=== PATIENT | male | born 1935 | race African-American/Black ===

== ENCOUNTER 2019-06-03 09:24 | Emergency (ER) | payer MEDICARE ==
[2019-06-03 09:53] LABS: INR-International Normal Ratio 1.1; PTT 30.7 SEC (22.9-36.1); Prothrombin Time 14.2 SEC (12.0-14.7)
[2019-06-03 09:58] LABS: #Basophils 0.1 thou/uL (0.0-0.2); #Monocytes 0.4 thou/uL (0.11-0.59); #Neutrophils 1.7 thou/uL (1.40-6.50); %Basophils 2.1 % (0.0-1.0); %Eosinophils 1.4 % (0.0-10.0); %Lymphocytes 31.6 % (21.0-51.0); %Monocytes 12.1 % (0.0-10.0); %Neutrophils 52.9 % (42.0-75.0); Hemoglobin 11.4 g/dL (14.0-18.0); Mean Corpuscular HGB CONC 31.3 g/dL (32.0-36.0); Mean Corpuscular Hemoglobin 28.5 pg (27.0-31.0); Platelet Count 151 thou/uL (130-400); RBC Distribution Width 13.6 % (11.5-14.5); Red Blood Cell (RBC) Count 3.99 mill/uL (4.70-6.10); White Blood Cell (WBC) Count 3.2 thou/uL (4.8-10.8)
[2019-06-03 10:02] LABS: ALT (SGPT) Less than 7 U/L (8-55); AST (SGOT) 20 U/L (5-34); Albumin 3.6 g/dL (3.4-4.8); Alkaline Phosphatase 55 U/L (40-150); Anion Gap 12 mmol/L (10-20); BUN (Urea Nitrogen) 13 mg/dL (8.4-25.7); Bilirubin, Total 0.8 mg/dL (0.2-1.2); Calc. Creatinine Clearance 0 mL/min (70-130); Calcium 9.5 mg/dL (7.8-10.44); Carbon Dioxide 28 mmol/L (23-31); Chloride 107 mmol/L (98-107); Estimated GFR-MDRD Greater than 90; Globulin 3.1 g/dL (2.4-3.5); Glucose 93 mg/dL (83-110); Lipase 17 U/L (8-78); Potassium 3.5 mmol/L (3.5-5.1); Protein, Total 6.7 g/dL (5.8-8.1); Sodium 143 mmol/L (136-145)
--- NOTE | 2019-06-03 10:05 | RAD ---
XR Chest 1 View Portable HISTORY: Chest pain COMPARISON: 06/28/2017 FINDINGS: The heart size is normal. The lungs are well expanded without focal areas of consolidation, pneumothorax or pleural effusions. IMPRESSION: No radiographic evidence of acute cardiopulmonary process.
== END 2019-06-03 10:32 | disposition home or self-care (01) ==
LOC: BURERS 09:24
DX: M25.512 Pain in left shoulder (principal); N40.0 Benign prostatic hyperplasia without lower urinary tract symptoms; E78.2 Mixed hyperlipidemia; I10 Essential (primary) hypertension; Z86.73 Personal history of transient ischemic attack (TIA), and cerebral infarction without residual deficits; I25.10 Atherosclerotic heart disease of native coronary artery without angina pectoris
CPT/HCPCS: 71045; 80053; 83690; 84484; 85025; 85610; 85730

== ENCOUNTER 2019-06-16 13:18 | Emergency (ER) | payer MEDICARE ==
[2019-06-16 14:02] LABS: ALT (SGPT) 10 U/L (8-55); AST (SGOT) 23 U/L (5-34); Alkaline Phosphatase 56 U/L (40-150); Anion Gap 13 mmol/L (10-20); BUN (Urea Nitrogen) 25 mg/dL (8.4-25.7); Bilirubin, Total 0.5 mg/dL (0.2-1.2); CK (CPK) 98 U/L (30-200); Calc. Creatinine Clearance 0 mL/min (70-130); Calcium 9.9 mg/dL (7.8-10.44); Carbon Dioxide 27 mmol/L (23-31); Chloride 105 mmol/L (98-107); Estimated GFR-MDRD 70; Globulin 3.6 g/dL (2.4-3.5); Glucose 97 mg/dL (83-110); Potassium 3.5 mmol/L (3.5-5.1); Protein, Total 7.6 g/dL (5.8-8.1); Sodium 141 mmol/L (136-145)
[2019-06-16 14:11] LABS: #Basophils 0.1 thou/uL (0.0-0.2); #Eosinphils 0.1 thou/uL (0.0-0.7); #Lymphocytes 1.7 thou/uL (1.20-3.40); #Monocytes 0.5 thou/uL (0.11-0.59); #Neutrophils 2.1 thou/uL (1.40-6.50); %Basophils 1.9 % (0.0-1.0); %Eosinophils 2.1 % (0.0-10.0); %Lymphocytes 38.8 % (21.0-51.0); %Monocytes 11.1 % (0.0-10.0); %Neutrophils 46.2 % (42.0-75.0); Band 1 % (5-11); Eosinophils 1 % (0-10); Hemoglobin 11.4 g/dL (14.0-18.0); Lymphocytes 37 % (21-51); MDiff Complete? YES; Mean Corpuscular HGB CONC 30.3 g/dL (32.0-36.0); Mean Corpuscular Hemoglobin 27.8 pg (27.0-31.0); Mean Platelet Volume 10.8 fL (7.4-10.4); Monocytes 13 % (0-10); Neutrophil 48 % (42-75); Platelet Count 151 thou/uL (130-400); RBC Distribution Width 13.7 % (11.5-14.5); Red Blood Cell (RBC) Count 4.09 mill/uL (4.70-6.10); White Blood Cell (WBC) Count 4.4 thou/uL (4.8-10.8)
--- NOTE | 2019-06-16 17:29 | RAD ---
PORTABLE CHEST: 06/16/2019 COMPARISON: Chest films dating back to 06/28/2017. FINDINGS: The heart is normal in size. The mediastinum shows no widening or shift. The lungs are fully inflat ed and clear. There are some vague calcific opacities over the left upper chest that, in retrospect, are present on the prior study. They are probably pleural calcifications. IMPRESSION: No acute finding. POS: HOME
== END 2019-06-16 14:30 | disposition home or self-care (01) ==
LOC: BURERS 13:18
DX: R07.89 Other chest pain (principal); N40.0 Benign prostatic hyperplasia without lower urinary tract symptoms; E78.2 Mixed hyperlipidemia; I10 Essential (primary) hypertension; Z86.73 Personal history of transient ischemic attack (TIA), and cerebral infarction without residual deficits; I25.10 Atherosclerotic heart disease of native coronary artery without angina pectoris; I48.91 Unspecified atrial fibrillation; Z79.899 Other long term (current) drug therapy; Z79.82 Long term (current) use of aspirin
CPT/HCPCS: 36415; 71045; 80053; 82550; 84443; 84484; 85025; 93005

== ENCOUNTER 2020-01-11 11:29 | Emergency (ER) | payer MEDICARE ==
[2020-01-11 12:20] LABS: Platelet Count 94 thou/uL (130-400)
[2020-01-11 12:27] LABS: ALT (SGPT) 16 U/L (8-55); AST (SGOT) 31 U/L (5-34); Albumin 3.6 g/dL (3.4-4.8); Alkaline Phosphatase 56 U/L (40-110); Anion Gap 14 mmol/L (10-20); BUN (Urea Nitrogen) 11 mg/dL (8.4-25.7); Bilirubin, Total 1.4 mg/dL (0.2-1.2); Calc. Creatinine Clearance 0 mL/min (70-130); Calcium 8.4 mg/dL (7.8-10.44); Carbon Dioxide 24 mmol/L (23-31); Chloride 103 mmol/L (98-107); Estimated GFR-MDRD Greater than 90; Globulin 3.1 g/dL (2.4-3.5); Glucose 100 mg/dL (83-110); Potassium 3.1 mmol/L (3.5-5.1); Protein, Total 6.7 g/dL (5.8-8.1); Sodium 138 mmol/L (136-145)
[2020-01-11 12:28] LABS: #Basophils 0.1 thou/uL (0.0-0.2); #Lymphocytes 0.5 thou/uL (1.20-3.40); #Monocytes 0.6 thou/uL (0.11-0.59); #Neutrophils 7.1 thou/uL (1.40-6.50); %Basophils 1.1 % (0.0-1.0); %Lymphocytes 6.1 % (21.0-51.0); %Monocytes 7.7 % (0.0-10.0); Band 3 % (5-11); Elliptocytes SLIGHT = 2-5 cells (100X) (0-1/hpf); Hemoglobin 11.7 g/dL (14.0-18.0); Lymphocytes 8 % (21-51); MDiff Complete? YES; Mean Corpuscular HGB CONC 31.2 g/dL (32.0-36.0); Mean Corpuscular Hemoglobin 28.8 pg (27.0-31.0); Mean Corpuscular Volume 92.3 fL (78.0-98.0); Mean Platelet Volume 12.2 fL (7.4-10.4); Monocytes 12 % (0-10); Neutrophil 77 % (42-75); RBC Distribution Width 15.9 % (11.5-14.5); Red Blood Cell (RBC) Count 4.07 mill/uL (4.70-6.10); White Blood Cell (WBC) Count 8.3 thou/uL (4.8-10.8)
[2020-01-11 12:47] LABS: CKMB 3.2 ng/mL (0-6.6)
[2020-01-11 12:55] LABS: Bilirubin Negative (Negative); Blood, Urine Large (Negative); Clarity Cloudy (Clear); Glucose, Urine (Dipstick) Negative (Negative); Leukocyte Moderate (Negative); Nitrite Positive (Negative); Protein, Urine (Dipstick) 30 mg/dL (Neg-Trace)
[2020-01-11 13:00] LABS: Bacteria/HPF 4+ HPF (None Seen); Broad Cast None Seen LPF (None Seen); Calcium Oxalate Crystals None Seen HPF (None Seen); Cellular Cast None Seen LPF (None Seen); Epithelial Cast None Seen LPF (None Seen); Fatty Cast None Seen LPF (None Seen); Mucous/LPF None Seen LPF (<2+); Other Casts None Seen LPF (None Seen); Oval Fat Bodies/HPF None Seen HPF (None Seen); Red Blood Cell Cast None Seen LPF (None Seen); Renal Epithelial None Seen HPF (None Seen); Sperm/HPF None Seen HPF (None Seen); Squamous Epithelial 0-3 HPF (0-3); Transitional Epithelial None Seen HPF (None Seen); Trichomonas/HPF None Seen HPF (None Seen); Triple Phosphate Crystal None Seen HPF (None Seen); Unclassified Crystals None Seen HPF (None Seen); WBC/HPF 21-50 HPF (0-3); Waxy Cast None Seen LPF (None Seen); White Blood Cell Cast None Seen LPF (None Seen); Yeast-Budding Rare HPF (None Seen); Yeast-Hyphae None Seen HPF (None Seen)
[2020-01-11] MEDS ORDERED: Sodium Chloride 0.9% 100 ML ONE (13:19)
[2020-01-11] MEDS ORDERED: cefTRIAXone\\ROCEPHIN 2 GM VIAL ONE (13:19)
--- NOTE | 2020-01-11 13:43 | RAD ---
PORTABLE CHEST: Date: 01/11/2020 An AP portable film at 1205 hours is compared with an 06/16/2019 study. There is some mild interstitial prominence today that was not present before. It is present in a diff use fashion. No lobar infiltrate was seen. No large effusions are present. The heart size is normal. IMPRESSION: Mild interstitial prominence. Further clinical information would be needed to determine possible caus es. POS: HOME
== END 2020-01-11 14:04 | disposition home or self-care (01) ==
LOC: BURERS 11:29
DX: N39.0 Urinary tract infection, site not specified (principal); E87.6 Hypokalemia; E78.5 Hyperlipidemia, unspecified; E78.00 Pure hypercholesterolemia, unspecified; I10 Essential (primary) hypertension; I25.10 Atherosclerotic heart disease of native coronary artery without angina pectoris; I48.91 Unspecified atrial fibrillation; Z86.73 Personal history of transient ischemic attack (TIA), and cerebral infarction without residual deficits
CPT/HCPCS: 71045; 80053; 81003; 81015; 82553; 83605; 83880; 84484; 85025; 87040; 87077; 87086; 87186; 93005; 96365; J0696; J3490

== ENCOUNTER 2020-04-17 11:53 | Emergency (ER) | payer MEDICARE | END 2020-04-17 12:10 | disposition home or self-care (01) | LOC: BURERS 11:53 | DX: Z00.00 Encounter for general adult medical examination without abnormal findings (principal); N40.0 Benign prostatic hyperplasia without lower urinary tract symptoms; E78.2 Mixed hyperlipidemia; I10 Essential (primary) hypertension; I25.10 Atherosclerotic heart disease of native coronary artery without angina pectoris; I48.91 Unspecified atrial fibrillation; Z86.73 Personal history of transient ischemic attack (TIA), and cerebral infarction without residual deficits | CPT/HCPCS: 99281 ==

== ENCOUNTER 2020-08-13 09:51 | Emergency (ER) | payer MEDICARE ==
[2020-08-13 10:43] LABS: Bilirubin Negative (Negative); Blood, Urine Negative (Negative); Clarity Clear (Clear); Glucose, Urine (Dipstick) Negative (Negative); Ketone, Urine Negative (Negative); Leukocyte Negative (Negative); Nitrite Negative (Negative); Protein, Urine (Dipstick) Negative (Neg-Trace); Urobilinogen 0.2 mg/dL (Less than 2); pH, Urine 6.5 (5.0-9.0)
[2020-08-13 10:51] LABS: Hemoglobin 14.1 g/dL (14.0-18.0); Mean Corpuscular HGB CONC 31.5 g/dL (32.0-36.0); Mean Corpuscular Hemoglobin 30.4 pg (27.0-31.0); Mean Corpuscular Volume 96.7 fL (78.0-98.0); Mean Platelet Volume 15.3 fL (7.4-10.4); Platelet Count 93 thou/uL (130-400); RBC Distribution Width 12.6 % (11.5-14.5); Red Blood Cell (RBC) Count 4.63 mill/uL (4.70-6.10); White Blood Cell (WBC) Count 3.5 thou/uL (4.8-10.8)
[2020-08-13 10:59] LABS: ALT (SGPT) 16 U/L (8-55); AST (SGOT) 22 U/L (5-34); Albumin 3.7 g/dL (3.4-4.8); Alkaline Phosphatase 60 U/L (40-110); Anion Gap 12 mmol/L (10-20); BUN (Urea Nitrogen) 12 mg/dL (8.4-25.7); Bilirubin, Total 1.1 mg/dL (0.2-1.2); Calc. Creatinine Clearance 0 mL/min (70-130); Calcium 8.8 mg/dL (7.8-10.44); Carbon Dioxide 29 mmol/L (23-31); Chloride 103 mmol/L (98-107); Estimated GFR-MDRD 72; Globulin 3.5 g/dL (2.4-3.5); Glucose 86 mg/dL (83-110); Potassium 3.6 mmol/L (3.5-5.1); Protein, Total 7.2 g/dL (5.8-8.1); Sodium 140 mmol/L (136-145)
[2020-08-13 11:04] LABS: #Eosinphils 0.1 thou/uL (0.0-0.7); #Lymphocytes 1.1 thou/uL (1.20-3.40); #Monocytes 0.3 thou/uL (0.11-0.59); %Eosinophils 1.9 % (0.0-10.0); %Lymphocytes 31.6 % (21.0-51.0); %Neutrophils 56.4 % (42.0-75.0); Giant Platelets SLIGHT; Large Platelets SLIGHT; MDiff Complete? YES; Platelet Clumps SLIGHT; Platelet Morphology Comment Appears Adequate
--- NOTE | 2020-08-13 12:05 | RAD ---
CHEST 2 VIEWS: Date: 08/13/2020 Comparison is made with the 07/11/2020 study. The heart is normal in size. There are no major lobar infiltrates, congestive changes, or effusions. 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 Ther e are a few vague patchy areas over some sections of the left hemithorax that were present before duane t are probably more pleural calcifications. CT would be definitive if needed. The mediastinum is unre markable. IMPRESSION: No definite acute finding. POS: HOME
== END 2020-08-13 11:30 | disposition home or self-care (01) ==
LOC: BURERS 09:51
DX: M54.6 Pain in thoracic spine (principal); N40.0 Benign prostatic hyperplasia without lower urinary tract symptoms; E78.2 Mixed hyperlipidemia; I10 Essential (primary) hypertension; I25.10 Atherosclerotic heart disease of native coronary artery without angina pectoris; I48.91 Unspecified atrial fibrillation; Z86.73 Personal history of transient ischemic attack (TIA), and cerebral infarction without residual deficits; Z79.899 Other long term (current) drug therapy; Z79.82 Long term (current) use of aspirin
CPT/HCPCS: 71046; 80053; 81003; 84484; 85025

== ENCOUNTER 2020-10-17 17:19 | Emergency (ER) | payer MEDICARE ==
[2020-10-17] MEDS ORDERED: Amiodarone In Dextrose 200 ML ONE (17:30)
[2020-10-17 18:05] LABS: Band 2 % (5-11); Eosinophils 1 % (0-10); Hemoglobin 13.2 g/dL (14.0-18.0); Lymphocytes 29 % (21-51); MDiff Complete? YES; Mean Corpuscular HGB CONC 32.1 g/dL (32.0-36.0); Mean Corpuscular Hemoglobin 30.1 pg (27.0-31.0); Mean Corpuscular Volume 93.9 fL (78.0-98.0); Mean Platelet Volume 13.1 fL (7.4-10.4); Metamyelocyte 1 % (0-0); Monocytes 6 % (0-10); Neutrophil 59 % (42-75); Platelet Count 99 thou/uL (130-400); Platelet Morphology Comment Appears Decreased; RBC Distribution Width 12.1 % (11.5-14.5); Reactive Lymphocytes 2 % (0-10); Red Blood Cell (RBC) Count 4.38 mill/uL (4.70-6.10); White Blood Cell (WBC) Count 4.7 thou/uL (4.8-10.8)
[2020-10-17] MEDS ORDERED: Aspirin Chewable 81 MG TAB ONE (18:07)
[2020-10-17 18:12] LABS: ALT (SGPT) 19 U/L (8-55); AST (SGOT) 38 U/L (5-34); Albumin 3.4 g/dL (3.4-4.8); Alkaline Phosphatase 50 U/L (40-110); Anion Gap 16 mmol/L (10-20); BUN (Urea Nitrogen) 16 mg/dL (8.4-25.7); Bilirubin, Total 1.1 mg/dL (0.2-1.2); Calc. Creatinine Clearance 0 mL/min (70-130); Calcium 8.8 mg/dL (7.8-10.44); Carbon Dioxide 23 mmol/L (23-31); Chloride 104 mmol/L (98-107); Globulin 4.2 g/dL (2.4-3.5); Glucose 141 mg/dL (83-110); Magnesium 1.9 mg/dL (1.6-2.6); Potassium 4.7 mmol/L (3.5-5.1); Protein, Total 7.6 g/dL (5.8-8.1); Sodium 138 mmol/L (136-145)
[2020-10-17 18:23] LABS: Prothrombin Time 13.1 sec (12.0-14.7)
[2020-10-17] MEDS ORDERED: Magnesium 2 GM/50 ML BAG (IN WATER) ONE (18:58)
[2020-10-17] MEDS ORDERED: Morphine 2 MG/ML VIAL ONE (19:01)
--- NOTE | 2020-10-17 22:03 | RAD ---
PORTABLE CHEST: Date: 10-17-2020 An AP portable film at 1757 is compared with a 08-13-2020 study. FINDINGS: The heart is normal in size. There is no congestion of vessels. There may be a very small amount of p leural fluid. There is some patchy haziness in the lung bases near each hemidiaphragm. I cannot exclu de some infiltrates here, and in the proper clinical context infection, including Covid, should be a consideration. There are some vague patchy areas over the left lateral hemithorax which I have a susp icion are probably calcified pleural plaques. There is a hint of diaphragmatic calcification on the l eft side suggesting that there may have been prior asbestos exposure. IMPRESSION: 1. I cannot exclude developing basilar infiltrates. 2. Possible calcified pleural plaques. CT would be more definitive. I would consider giving at [facility] another follow up chest x-ray on this patient after initial treatment. POS: HOME
== END 2020-10-17 19:23 | disposition short-term general hospital (02) ==
LOC: BURERS 17:19
DX: I49.01 Ventricular fibrillation (principal); E78.2 Mixed hyperlipidemia; I10 Essential (primary) hypertension; Z86.73 Personal history of transient ischemic attack (TIA), and cerebral infarction without residual deficits; I25.10 Atherosclerotic heart disease of native coronary artery without angina pectoris; Z79.82 Long term (current) use of aspirin; Z79.899 Other long term (current) drug therapy
CPT/HCPCS: 36415; 71045; 80053; 83735; 83880; 84484; 85025; 85610; 93005; 96365; 96375; 96376; J0282; J2270; J3475

== ENCOUNTER 2021-02-14 14:58 | Emergency (ER) | payer MEDICARE ==
[2021-02-14 15:48] LABS: #Basophils 0.2 thou/uL (0.0-0.2); #Lymphocytes 0.6 thou/uL (1.20-3.40); #Monocytes 0.6 thou/uL (0.11-0.59); #Neutrophils 6.6 thou/uL (1.40-6.50); %Basophils 2.1 % (0.0-1.0); %Eosinophils 0.1 % (0.0-10.0); %Lymphocytes 7.3 % (21.0-51.0); %Neutrophils 82.6 % (42.0-75.0); Mean Corpuscular HGB CONC 32.5 g/dL (32.0-36.0); Mean Corpuscular Volume 98.3 fL (78.0-98.0); Mean Platelet Volume 11.9 fL (7.4-10.4); Platelet Count 134 thou/uL (130-400); RBC Distribution Width 12.9 % (11.5-14.5); Red Blood Cell (RBC) Count 4.07 mill/uL (4.70-6.10)
[2021-02-14 15:49] LABS: ALT (SGPT) 11 U/L (8-55); AST (SGOT) 19 U/L (5-34); Albumin 3.7 g/dL (3.4-4.8); Alkaline Phosphatase 58 U/L (40-110); Anion Gap 14 mmol/L (10-20); BUN (Urea Nitrogen) 20 mg/dL (8.4-25.7); Bilirubin, Total 0.9 mg/dL (0.2-1.2); Calc. Creatinine Clearance 0 mL/min (70-130); Carbon Dioxide 28 mmol/L (23-31); Chloride 101 mmol/L (98-107); Globulin 3.5 g/dL (2.4-3.5); Glucose 95 mg/dL (83-110); Potassium 4.5 mmol/L (3.5-5.1); Protein, Total 7.2 g/dL (5.8-8.1); Sodium 138 mmol/L (136-145)
[2021-02-14 16:26] LABS: Bilirubin Negative (Negative); Blood, Urine Trace (Negative); Clarity Cloudy (Clear); Glucose, Urine (Dipstick) Negative (Negative); Ketone, Urine Negative (Negative); Leukocyte Large (Negative); Nitrite Positive (Negative); Protein, Urine (Dipstick) 30 mg/dL (Neg-Trace); Urobilinogen 0.2 mg/dL (Less than 2); pH, Urine 8.5 (5.0-9.0)
[2021-02-14 16:30] LABS: Bacteria/HPF 3+ HPF (None Seen); RBC/HPF 0-3 HPF (0-3); Squamous Epithelial None Seen HPF (0-3); WBC/HPF Greater than 50 HPF (0-3)
[2021-02-14] MEDS ORDERED: cefTRIAXone\\ROCEPHIN 1 GM VIAL ONE (17:10)
[2021-02-14] MEDS ORDERED: Sodium Chloride 0.9% 100 ML ONE (17:10)
== END 2021-02-14 17:26 | disposition home or self-care (01) ==
LOC: BURERS 14:58
DX: N40.1 Benign prostatic hyperplasia with lower urinary tract symptoms (principal); N13.8 Other obstructive and reflux uropathy; N39.0 Urinary tract infection, site not specified; E78.2 Mixed hyperlipidemia; I10 Essential (primary) hypertension; I25.10 Atherosclerotic heart disease of native coronary artery without angina pectoris; I48.91 Unspecified atrial fibrillation; Z86.73 Personal history of transient ischemic attack (TIA), and cerebral infarction without residual deficits; Z79.899 Other long term (current) drug therapy
CPT/HCPCS: 36415; 51798; 71046; 80053; 81003; 81015; 84484; 85025; 87077; 87086; 87186; 93005; 94760; 96374; J0696; J3490

== ENCOUNTER 2021-03-17 13:10 | Emergency (ER) | payer MEDICARE | END 2021-03-17 13:44 | disposition home or self-care (01) | LOC: BURERS 13:10 | DX: L20.9 Atopic dermatitis, unspecified (principal); N40.0 Benign prostatic hyperplasia without lower urinary tract symptoms; E78.2 Mixed hyperlipidemia; I10 Essential (primary) hypertension; I25.10 Atherosclerotic heart disease of native coronary artery without angina pectoris; I48.91 Unspecified atrial fibrillation; Z86.73 Personal history of transient ischemic attack (TIA), and cerebral infarction without residual deficits; Z79.899 Other long term (current) drug therapy; Z79.82 Long term (current) use of aspirin | CPT/HCPCS: 99282 ==

== ENCOUNTER 2021-08-10 22:23 | Emergency (ER) | payer MEDICARE ==
[2021-08-10 23:10] LABS: ALT (SGPT) 40 U/L (8-55); AST (SGOT) 47 U/L (5-34); Albumin 3.5 g/dL (3.4-4.8); Alkaline Phosphatase 65 U/L (40-110); Anion Gap 14 mmol/L (10-20); BUN (Urea Nitrogen) 23 mg/dL (8.4-25.7); Calc. Creatinine Clearance 0 mL/min (70-130); Carbon Dioxide 24 mmol/L (23-31); Chloride 103 mmol/L (98-107); Glucose 93 mg/dL (83-110); Potassium 4.1 mmol/L (3.5-5.1); Protein, Total 6.5 g/dL (5.8-8.1); Sodium 137 mmol/L (136-145)
[2021-08-10 23:23] LABS: #Basophils 0.1 thou/uL (0.0-0.2); #Eosinphils 0.1 thou/uL (0.0-0.7); #Lymphocytes 1.3 thou/uL (1.20-3.40); #Monocytes 0.6 thou/uL (0.11-0.59); #Neutrophils 3.3 thou/uL (1.40-6.50); %Basophils 2.6 % (0.0-1.0); %Eosinophils 1.1 % (0.0-10.0); %Lymphocytes 24.2 % (21.0-51.0); %Monocytes 11.3 % (0.0-10.0); %Neutrophils 60.8 % (42.0-75.0); Hemoglobin 12.4 g/dL (14.0-18.0); Mean Corpuscular HGB CONC 32.6 g/dL (32.0-36.0); Mean Corpuscular Hemoglobin 30.6 pg (27.0-31.0); Mean Corpuscular Volume 93.8 fL (78.0-98.0); Mean Platelet Volume 14.2 fL (7.4-10.4); Platelet Count 127 thou/uL (130-400); RBC Distribution Width 13.8 % (11.5-14.5); Red Blood Cell (RBC) Count 4.04 mill/uL (4.70-6.10); White Blood Cell (WBC) Count 5.5 thou/uL (4.8-10.8)
[2021-08-10 23:24] LABS: Large Platelets SLIGHT; MDiff Complete? YES; Platelet Morphology Comment Appears Adequate; RBC Morphology Normal
[2021-08-11] LABS: Bilirubin Negative (Negative); Blood, Urine Trace (Negative); Clarity Slightly Cloudy (Clear); Glucose, Urine (Dipstick) Negative (Negative); Ketone, Urine Negative (Negative); Leukocyte Large (Negative); Nitrite Positive (Negative); Protein, Urine (Dipstick) Negative (Neg-Trace); Specific Gravity, Urine 1.015 (1.005-1.030)
[2021-08-11 00:01] LABS: RBC/HPF 0-3 HPF (0-3); WBC/HPF 21-50 HPF (0-3)
[2021-08-11 00:02] LABS: Bacteria/HPF 2+ HPF (None Seen); Squamous Epithelial 0-3 HPF (0-3)
[2021-08-11] MEDS ORDERED: cefTRIAXone\\ROCEPHIN 1 GM VIAL ONE (00:21)
[2021-08-11] MEDS ORDERED: Sodium Chloride 0.9% 100 ML ONE (00:21)
[2021-08-11] MEDS ORDERED: Doxycycline 100 MG CAP ONE (00:38)
[2021-08-11 01:01] LABS: SARS-CoV-2 NAA Rapid Test DETECTED (NotDetected)
[2021-08-11] MEDS ORDERED: Enoxaparin Sodium 100 MG/ML SYRINGE ONE (01:05)
[2021-08-11] MEDS ORDERED: Dexamethasone 4 MG TAB ONE (01:05)
== END 2021-08-11 02:40 | disposition short-term general hospital (02) ==
LOC: BURERS 22:23
DX: U07.1 COVID-19 (principal); J12.82 Pneumonia due to coronavirus disease 2019; N39.0 Urinary tract infection, site not specified; E78.5 Hyperlipidemia, unspecified; I10 Essential (primary) hypertension
CPT/HCPCS: 70450; 71045; 80053; 83605; 83880; 84484; 85025; 87040; 87077; 87086; 87186; 93005; U0002; 36415; 81003; 81015; 96365; 96366; 96372; J0696; J1650; J3490; J8540

== ENCOUNTER 2021-10-12 16:30 | Observation (INO) | payer MEDICARE ==
[2021-10-12 17:31] LABS: #Basophils 0.1 thou/uL (0.0-0.2); #Neutrophils 8.6 thou/uL (1.40-6.50); %Basophils 1.1 % (0.0-1.0); %Eosinophils 0.2 % (0.0-10.0); %Lymphocytes 9.4 % (21.0-51.0); %Monocytes 9.4 % (0.0-10.0); %Neutrophils 79.9 % (42.0-75.0); Hemoglobin 11.6 g/dL (14.0-18.0); Mean Corpuscular HGB CONC 33.4 g/dL (32.0-36.0); Mean Corpuscular Hemoglobin 30.3 pg (27.0-31.0); Mean Corpuscular Volume 90.7 fL (78.0-98.0); Mean Platelet Volume 11.5 fL (7.4-10.4); Platelet Count 187 thou/uL (130-400); Red Blood Cell (RBC) Count 3.83 mill/uL (4.70-6.10); White Blood Cell (WBC) Count 10.8 thou/uL (4.8-10.8)
[2021-10-12 17:50] LABS: ALT (SGPT) 118 U/L (8-55); AST (SGOT) 155 U/L (5-34); Albumin 2.8 g/dL (3.4-4.8); Alkaline Phosphatase 61 U/L (40-110); Anion Gap 13 mmol/L (10-20); BUN (Urea Nitrogen) 20 mg/dL (8.4-25.7); Bilirubin, Total 1.3 mg/dL (0.2-1.2); CK (CPK) 2664 U/L (30-200); Calc. Creatinine Clearance 0 mL/min (70-130); Calcium 8.4 mg/dL (7.8-10.44); Carbon Dioxide 24 mmol/L (23-31); Chloride 98 mmol/L (98-107); Globulin 3.2 g/dL (2.4-3.5); Glucose 103 mg/dL (83-110); Lipase 15 U/L (8-78); Magnesium 2.1 mg/dL (1.6-2.6); Potassium 3.8 mmol/L (3.5-5.1); Sodium 131 mmol/L (136-145)
[2021-10-12 18:09] LABS: CKMB 24.2 ng/mL (0-6.6)
[2021-10-12 18:53] LABS: Bilirubin Negative (Negative); Blood, Urine Moderate (Negative); Clarity Slightly Cloudy (Clear); Glucose, Urine (Dipstick) Negative (Negative); Ketone, Urine Negative (Negative); Leukocyte Negative (Negative); Nitrite Negative (Negative); Protein, Urine (Dipstick) 30 mg/dL (Neg-Trace)
[2021-10-12 18:56] LABS: Bacteria/HPF 2+ HPF (None Seen); Calcium Oxalate Crystals Rare HPF (None Seen); Mucous/LPF 1+ LPF (<2+); RBC/HPF 0-3 HPF (0-3); Renal Epithelial 0-3 HPF (None Seen); Squamous Epithelial 0-3 HPF (0-3); WBC/HPF 0-3 HPF (0-3)
[2021-10-12] MEDS ORDERED: Acetaminophen 325 MG TAB PO PRN (19:30)
[2021-10-12] MEDS ORDERED: Ondansetron PF 4 MG/2 ML Vial IVP PRN (19:30)
[2021-10-12] MEDS ORDERED: Ondansetron ODT 4 MG TAB SL PRN (19:30)
[2021-10-12 20:08] VITALS: BMI 21.6
[2021-10-12] MEDS: Amiodarone 200 MG TAB PO SCH (20:49)
[2021-10-12] MEDS: hydrALAZINE 25 MG TAB PO SCH (20:49)
[2021-10-12] MEDS: Atorvastatin Calcium 40 MG TAB PO SCH (20:49)
[2021-10-12] MEDS: Sodium Chloride 0.9% 1,000 ML IV SCH (20:50)
[2021-10-12] MEDS ORDERED: Nitrofurantoin Monohyd/M-Cryst 100 MG CAP PO SCH (21:00)
[2021-10-13 01:55] LABS: SARS-CoV-2 NAA Rapid Test Not Detected (NotDetected)
[2021-10-13 05:42] LABS: ALT (SGPT) 117 U/L (8-55); AST (SGOT) 183 U/L (5-34); Albumin 2.4 g/dL (3.4-4.8); Alkaline Phosphatase 55 U/L (40-110); Anion Gap 13 mmol/L (10-20); BUN (Urea Nitrogen) 19 mg/dL (8.4-25.7); Bilirubin, Total 1.3 mg/dL (0.2-1.2); CK (CPK) 3052 U/L (30-200); Calc. Creatinine Clearance 49 mL/min (70-130); Calcium 8.1 mg/dL (7.8-10.44); Carbon Dioxide 23 mmol/L (23-31); Chloride 103 mmol/L (98-107); Glucose 93 mg/dL (83-110); Potassium 3.9 mmol/L (3.5-5.1); Protein, Total 5.4 g/dL (5.8-8.1); Sodium 135 mmol/L (136-145)
[2021-10-13] MEDS: Sodium Chloride 0.9% 1,000 ML IV SCH ×2 (07:02→16:58)
[2021-10-13] MEDS: Furosemide 40 MG TAB PO SCH (08:45)
[2021-10-13] MEDS: Spironolactone 25 MG TAB PO SCH (08:45)
[2021-10-13] MEDS: Carvedilol 3.125 MG TAB PO SCH ×2 (08:45→16:58)
[2021-10-13] MEDS: Tamsulosin HCl 0.4 MG CAP PO SCH (08:51)
[2021-10-13] MEDS: Aspirin 81 mg Enteric Coated Tablet PO SCH (08:51)
[2021-10-13] MEDS: Clopidogrel Bisulfate 75 MG TAB PO SCH (08:51)
[2021-10-13] MEDS: Finasteride 5 MG TAB PO SCH (08:51)
[2021-10-13] MEDS: hydrALAZINE 25 MG TAB PO SCH ×2 (08:51→20:15)
[2021-10-13] MEDS: Amiodarone 200 MG TAB PO SCH ×2 (08:52→20:16)
[2021-10-13] MEDS: Atorvastatin Calcium 40 MG TAB PO SCH (20:16)
[2021-10-14] MEDS: Sodium Chloride 0.9% 1,000 ML IV SCH (02:46)
[2021-10-14 07:31] LABS: ALT (SGPT) 96 U/L (8-55); AST (SGOT) 135 U/L (5-34); Albumin 2.1 g/dL (3.4-4.8); Alkaline Phosphatase 49 U/L (40-110); Anion Gap 12 mmol/L (10-20); BUN (Urea Nitrogen) 15 mg/dL (8.4-25.7); CK (CPK) 1509 U/L (30-200); Calc. Creatinine Clearance 52 mL/min (70-130); Calcium 7.5 mg/dL (7.8-10.44); Carbon Dioxide 19 mmol/L (23-31); Chloride 107 mmol/L (98-107); Globulin 2.8 g/dL (2.4-3.5); Glucose 99 mg/dL (83-110); Potassium 3.5 mmol/L (3.5-5.1); Protein, Total 4.9 g/dL (5.8-8.1); Sodium 134 mmol/L (136-145)
[2021-10-14] MEDS: Carvedilol 3.125 MG TAB PO SCH (08:15)
[2021-10-14] MEDS: Furosemide 40 MG TAB PO SCH (08:15)
[2021-10-14] MEDS: Amiodarone 200 MG TAB PO SCH (08:15)
[2021-10-14] MEDS: Tamsulosin HCl 0.4 MG CAP PO SCH (08:15)
[2021-10-14] MEDS: Spironolactone 25 MG TAB PO SCH (08:15)
[2021-10-14] MEDS: Aspirin 81 mg Enteric Coated Tablet PO SCH (08:15)
[2021-10-14] MEDS: hydrALAZINE 25 MG TAB PO SCH (08:16)
[2021-10-14] MEDS: Clopidogrel Bisulfate 75 MG TAB PO SCH (08:17)
[2021-10-14] MEDS: Finasteride 5 MG TAB PO SCH (08:17)
[2021-10-14 08:29] VITALS: BP 150/83
[2021-10-14 10:50] VITALS: TEMP 97.7
[2021-10-15] MEDS ORDERED: FLU VACC QS2021-22(65YR UP)/PF 240 MCG/0.7 ML SYRINGE IM ONE (09:00)
== END 2021-10-14 13:41 | disposition swing bed (61) ==
LOC: BURERS 16:30 → BURMED 18:34
PROVIDERS: ADMIT Family Medicine; ATTEND Family Medicine
DX: M62.82 Rhabdomyolysis (principal); E86.0 Dehydration; R53.1 Weakness; I11.0 Hypertensive heart disease with heart failure; I50.22 Chronic systolic (congestive) heart failure; E78.5 Hyperlipidemia, unspecified; N40.0 Benign prostatic hyperplasia without lower urinary tract symptoms; I69.354 Hemiplegia and hemiparesis following cerebral infarction affecting left non-dominant side; R29.6 Repeated falls; I42.8 Other cardiomyopathies; I25.10 Atherosclerotic heart disease of native coronary artery without angina pectoris; Z87.891 Personal history of nicotine dependence; Z79.02 Long term (current) use of antithrombotics/antiplatelets; Z79.82 Long term (current) use of aspirin; Z79.899 Other long term (current) drug therapy; Z20.822 Contact with and (suspected) exposure to COVID-19; Z95.810 Presence of automatic (implantable) cardiac defibrillator; Z99.3 Dependence on wheelchair
CPT/HCPCS: 36415; 80053; 81003; 81015; 82550; 82553; 83605; 83690; 83735; 83880; 84484; 85025; 93005; G0378; J7050; U0002

== ENCOUNTER 2021-10-14 13:42 | Inpatient (IN) | payer MEDICARE ==
[2021-10-14 14:49] VITALS: BMI 21.7
[2021-10-14] MEDS ORDERED: Ondansetron ODT 4 MG TAB PO PRN (14:49)
[2021-10-14] MEDS ORDERED: FLU VACC QS2021-22(65YR UP)/PF 240 MCG/0.7 ML SYRINGE IM ONE (15:15)
[2021-10-14] MEDS ORDERED: Ondansetron PF 4 MG/2 ML Vial IVP PRN (17:45)
[2021-10-14] MEDS: Carvedilol 3.125 MG TAB PO SCH (18:26)
[2021-10-14] MEDS: Atorvastatin Calcium 40 MG TAB PO SCH (20:26)
[2021-10-14] MEDS: hydrALAZINE 25 MG TAB PO SCH (20:26)
[2021-10-14] MEDS: Amiodarone 200 MG TAB PO SCH (20:27)
[2021-10-15] MEDS: Acetaminophen 325 MG TAB PO PRN (05:37)
[2021-10-15] MEDS: Carvedilol 3.125 MG TAB PO SCH ×2 (09:01→17:19)
[2021-10-15] MEDS: Clopidogrel Bisulfate 75 MG TAB PO SCH (09:02)
[2021-10-15] MEDS: Furosemide 40 MG TAB PO SCH (09:02)
[2021-10-15] MEDS: Finasteride 5 MG TAB PO SCH (09:02)
[2021-10-15] MEDS: Spironolactone 25 MG TAB PO SCH (09:02)
[2021-10-15] MEDS: Aspirin 81 mg Enteric Coated Tablet PO SCH (09:02)
[2021-10-15] MEDS: Tamsulosin HCl 0.4 MG CAP PO SCH (09:02)
[2021-10-15] MEDS: hydrALAZINE 25 MG TAB PO SCH ×3 (09:02→20:32)
[2021-10-15] MEDS: Amiodarone 200 MG TAB PO SCH ×2 (09:02→20:33)
[2021-10-15] MEDS: Atorvastatin Calcium 40 MG TAB PO SCH (20:33)
[2021-10-15] MEDS: Nystatin 500,000 UNITS/5 ML UDCUP SSW SCH (20:33)
[2021-10-16] MEDS: Finasteride 5 MG TAB PO SCH (09:26)
[2021-10-16] MEDS: Tamsulosin HCl 0.4 MG CAP PO SCH (09:26)
[2021-10-16] MEDS: Carvedilol 3.125 MG TAB PO SCH ×2 (09:30→17:40)
[2021-10-16] MEDS: Amiodarone 200 MG TAB PO SCH ×2 (09:30→22:00)
[2021-10-16] MEDS: Clopidogrel Bisulfate 75 MG TAB PO SCH (09:30)
[2021-10-16] MEDS: Aspirin 81 mg Enteric Coated Tablet PO SCH (09:30)
[2021-10-16] MEDS: Nystatin 500,000 UNITS/5 ML UDCUP SSW SCH ×4 (09:32→22:00)
[2021-10-16] MEDS: hydrALAZINE 25 MG TAB PO SCH (09:35)
[2021-10-16] MEDS: Spironolactone 25 MG TAB PO SCH (09:35)
[2021-10-16] MEDS: Furosemide 40 MG TAB PO SCH (09:36)
[2021-10-16] MEDS ORDERED: Furosemide 20 MG TAB PO SCH (10:00)
[2021-10-16] MEDS ORDERED: hydrALAZINE 25 MG TAB PO SCH (21:00)
[2021-10-16] MEDS: Atorvastatin Calcium 40 MG TAB PO SCH (22:00)
[2021-10-17 05:43] LABS: ALT (SGPT) 77 U/L (8-55); AST (SGOT) 89 U/L (5-34); Albumin 2.2 g/dL (3.4-4.8); Alkaline Phosphatase 61 U/L (40-110); Anion Gap 11 mmol/L (10-20); BUN (Urea Nitrogen) 21 mg/dL (8.4-25.7); Bilirubin, Total 1.1 mg/dL (0.2-1.2); Calc. Creatinine Clearance 45 mL/min (70-130); Carbon Dioxide 25 mmol/L (23-31); Chloride 102 mmol/L (98-107); Globulin 3.3 g/dL (2.4-3.5); Glucose 119 mg/dL (83-110); Potassium 3.4 mmol/L (3.5-5.1); Protein, Total 5.5 g/dL (5.8-8.1); Sodium 135 mmol/L (136-145)
[2021-10-17 05:49] LABS: #Basophils 0.2 thou/uL (0.0-0.2); #Lymphocytes 1.1 thou/uL (1.20-3.40); #Monocytes 1.5 thou/uL (0.11-0.59); #Neutrophils 12.8 thou/uL (1.40-6.50); %Lymphocytes 7.1 % (21.0-51.0); %Monocytes 9.7 % (0.0-10.0); %Neutrophils 82.1 % (42.0-75.0); Hemoglobin 10.6 g/dL (14.0-18.0); Mean Corpuscular HGB CONC 34.6 g/dL (32.0-36.0); Mean Corpuscular Hemoglobin 30.8 pg (27.0-31.0); Mean Corpuscular Volume 88.9 fL (78.0-98.0); Mean Platelet Volume 9.9 fL (7.4-10.4); Platelet Count 260 thou/uL (130-400); Red Blood Cell (RBC) Count 3.45 mill/uL (4.70-6.10); White Blood Cell (WBC) Count 15.6 thou/uL (4.8-10.8)
[2021-10-17] MEDS ORDERED: Furosemide 40 MG TAB PO SCH (07:30)
[2021-10-17] MEDS ORDERED: Furosemide 20 MG TAB PO SCH (07:30)
[2021-10-17] MEDS: D5 1/2 NS w/20 mEq KCL 1,000 ML IV SCH ×2 (08:20→22:08)
[2021-10-17] MEDS: Aspirin 81 mg Enteric Coated Tablet PO SCH (09:05)
[2021-10-17] MEDS: Tamsulosin HCl 0.4 MG CAP PO SCH (09:05)
[2021-10-17] MEDS: Clopidogrel Bisulfate 75 MG TAB PO SCH (09:06)
[2021-10-17] MEDS: Amiodarone 200 MG TAB PO SCH ×2 (09:06→20:47)
[2021-10-17] MEDS: Megestrol Acetate 40 MG TAB PO SCH ×2 (09:06→20:47)
[2021-10-17] MEDS: Nystatin 500,000 UNITS/5 ML UDCUP SSW SCH ×4 (09:07→20:47)
[2021-10-17] MEDS: Spironolactone 25 MG TAB PO SCH (09:07)
[2021-10-17] MEDS: Carvedilol 3.125 MG TAB PO SCH ×2 (09:07→17:43)
[2021-10-17] MEDS: Finasteride 5 MG TAB PO SCH (09:07)
[2021-10-17 11:23] LABS: Bilirubin Small (Negative); Blood, Urine Small (Negative); Clarity Clear (Clear); Glucose, Urine (Dipstick) Negative (Negative); Ketone, Urine Negative (Negative); Leukocyte Negative (Negative); Nitrite Negative (Negative); Protein, Urine (Dipstick) 100 mg/dL (Neg-Trace); Specific Gravity, Urine 1.015 (1.005-1.030); Urobilinogen > or = 8.0 mg/dL (Less than 2)
[2021-10-17 11:24] LABS: Urine Culture Reflex No No
[2021-10-17 12:16] LABS: Bacteria/HPF Rare-Few HPF (None Seen); Squamous Epithelial 0-3 HPF (0-3)
[2021-10-17] MEDS: Atorvastatin Calcium 40 MG TAB PO SCH (20:47)
[2021-10-18] MEDS: Acetaminophen 325 MG TAB PO PRN (05:31)
[2021-10-18 05:34] LABS: #Basophils 0.2 thou/uL (0.0-0.2); #Lymphocytes 0.7 thou/uL (1.20-3.40); #Monocytes 1.6 thou/uL (0.11-0.59); #Neutrophils 10.3 thou/uL (1.40-6.50); %Basophils 1.5 % (0.0-1.0); %Eosinophils 0.2 % (0.0-10.0); %Lymphocytes 5.6 % (21.0-51.0); %Monocytes 12.2 % (0.0-10.0); %Neutrophils 80.6 % (42.0-75.0); Hemoglobin 9.9 g/dL (14.0-18.0); Mean Corpuscular HGB CONC 33.5 g/dL (32.0-36.0); Mean Corpuscular Hemoglobin 30.4 pg (27.0-31.0); Mean Corpuscular Volume 90.7 fL (78.0-98.0); Mean Platelet Volume 9.8 fL (7.4-10.4); Platelet Count 260 thou/uL (130-400); RBC Distribution Width 13.2 % (11.5-14.5); Red Blood Cell (RBC) Count 3.27 mill/uL (4.70-6.10); White Blood Cell (WBC) Count 12.7 thou/uL (4.8-10.8)
[2021-10-18 05:53] LABS: ALT (SGPT) 67 U/L (8-55); AST (SGOT) 82 U/L (5-34); Alkaline Phosphatase 51 U/L (40-110); Anion Gap 11 mmol/L (10-20); BUN (Urea Nitrogen) 21 mg/dL (8.4-25.7); Calc. Creatinine Clearance 49 mL/min (70-130); Calcium 7.7 mg/dL (7.8-10.44); Carbon Dioxide 23 mmol/L (23-31); Chloride 102 mmol/L (98-107); Globulin 2.9 g/dL (2.4-3.5); Glucose 122 mg/dL (83-110); Potassium 3.7 mmol/L (3.5-5.1); Protein, Total 4.9 g/dL (5.8-8.1); Sodium 132 mmol/L (136-145)
[2021-10-18] MEDS: Nystatin 500,000 UNITS/5 ML UDCUP SSW SCH ×4 (08:25→20:31)
[2021-10-18] MEDS: Aspirin 81 mg Enteric Coated Tablet PO SCH (08:26)
[2021-10-18] MEDS: Amiodarone 200 MG TAB PO SCH ×2 (08:26→20:32)
[2021-10-18] MEDS: Tamsulosin HCl 0.4 MG CAP PO SCH (08:26)
[2021-10-18] MEDS: Finasteride 5 MG TAB PO SCH (08:26)
[2021-10-18] MEDS: Clopidogrel Bisulfate 75 MG TAB PO SCH (08:27)
[2021-10-18] MEDS: Megestrol Acetate 40 MG TAB PO SCH ×2 (08:27→20:32)
[2021-10-18] MEDS: Spironolactone 25 MG TAB PO SCH (08:27)
[2021-10-18] MEDS: Carvedilol 3.125 MG TAB PO SCH ×2 (08:27→17:51)
[2021-10-18] MEDS: Atorvastatin Calcium 40 MG TAB PO SCH (20:31)
[2021-10-19] MEDS: Acetaminophen 325 MG TAB PO PRN (05:10)
[2021-10-19 05:13] LABS: #Basophils 0.2 thou/uL (0.0-0.2); #Lymphocytes 0.9 thou/uL (1.20-3.40); #Monocytes 1.3 thou/uL (0.11-0.59); #Neutrophils 9.5 thou/uL (1.40-6.50); %Basophils 1.4 % (0.0-1.0); %Eosinophils 0.3 % (0.0-10.0); %Lymphocytes 7.2 % (21.0-51.0); %Monocytes 10.9 % (0.0-10.0); %Neutrophils 80.2 % (42.0-75.0); Mean Corpuscular HGB CONC 33.1 g/dL (32.0-36.0); Mean Corpuscular Hemoglobin 29.9 pg (27.0-31.0); Mean Corpuscular Volume 90.4 fL (78.0-98.0); Mean Platelet Volume 9.8 fL (7.4-10.4); Platelet Count 305 thou/uL (130-400); RBC Distribution Width 13.2 % (11.5-14.5); Red Blood Cell (RBC) Count 3.34 mill/uL (4.70-6.10); White Blood Cell (WBC) Count 11.9 thou/uL (4.8-10.8)
[2021-10-19 05:28] LABS: ALT (SGPT) 68 U/L (8-55); AST (SGOT) 90 U/L (5-34); Alkaline Phosphatase 52 U/L (40-110); Anion Gap 13 mmol/L (10-20); BUN (Urea Nitrogen) 25 mg/dL (8.4-25.7); Calc. Creatinine Clearance 42 mL/min (70-130); Calcium 7.8 mg/dL (7.8-10.44); Carbon Dioxide 22 mmol/L (23-31); Chloride 102 mmol/L (98-107); Globulin 3.2 g/dL (2.4-3.5); Glucose 83 mg/dL (83-110); Potassium 3.9 mmol/L (3.5-5.1); Protein, Total 5.2 g/dL (5.8-8.1); Sodium 133 mmol/L (136-145)
[2021-10-19] MEDS: Carvedilol 3.125 MG TAB PO SCH ×2 (09:20→18:49)
[2021-10-19] MEDS: Clopidogrel Bisulfate 75 MG TAB PO SCH (09:20)
[2021-10-19] MEDS: Aspirin 81 mg Enteric Coated Tablet PO SCH (09:20)
[2021-10-19] MEDS: Finasteride 5 MG TAB PO SCH (09:21)
[2021-10-19] MEDS: Megestrol Acetate 40 MG TAB PO SCH ×2 (09:22→20:28)
[2021-10-19] MEDS: Tamsulosin HCl 0.4 MG CAP PO SCH (09:24)
[2021-10-19] MEDS: Nystatin 500,000 UNITS/5 ML UDCUP SSW SCH ×4 (09:27→20:27)
[2021-10-19] MEDS: Amiodarone 200 MG TAB PO SCH ×2 (09:45→20:28)
[2021-10-19] MEDS: Sodium Chloride 0.9% 1,000 ML IV SCH (13:30)
[2021-10-19] MEDS: Spironolactone 25 MG TAB PO SCH (15:26)
[2021-10-19] MEDS: Atorvastatin Calcium 40 MG TAB PO SCH (20:27)
[2021-10-20 04:59] VITALS: BP 145/59; TEMP 98.5
[2021-10-20 06:05] LABS: #Basophils 0.2 thou/uL (0.0-0.2); #Lymphocytes 0.8 thou/uL (1.20-3.40); #Monocytes 1.3 thou/uL (0.11-0.59); #Neutrophils 9.1 thou/uL (1.40-6.50); %Basophils 1.3 % (0.0-1.0); %Eosinophils 0.2 % (0.0-10.0); %Lymphocytes 7.4 % (21.0-51.0); %Monocytes 11.1 % (0.0-10.0); Hemoglobin 10.3 g/dL (14.0-18.0); Mean Corpuscular HGB CONC 32.5 g/dL (32.0-36.0); Mean Corpuscular Hemoglobin 29.7 pg (27.0-31.0); Mean Corpuscular Volume 91.4 fL (78.0-98.0); Mean Platelet Volume 9.3 fL (7.4-10.4); Platelet Count 335 thou/uL (130-400); RBC Distribution Width 13.6 % (11.5-14.5); Red Blood Cell (RBC) Count 3.46 mill/uL (4.70-6.10); White Blood Cell (WBC) Count 11.4 thou/uL (4.8-10.8)
[2021-10-20 06:13] LABS: ALT (SGPT) 69 U/L (8-55); AST (SGOT) 99 U/L (5-34); Albumin 2.1 g/dL (3.4-4.8); Alkaline Phosphatase 61 U/L (40-110); Anion Gap 12 mmol/L (10-20); BUN (Urea Nitrogen) 29 mg/dL (8.4-25.7); Calc. Creatinine Clearance 42 mL/min (70-130); Calcium 8.1 mg/dL (7.8-10.44); Carbon Dioxide 22 mmol/L (23-31); Chloride 104 mmol/L (98-107); Globulin 3.3 g/dL (2.4-3.5); Glucose 117 mg/dL (83-110); Potassium 3.5 mmol/L (3.5-5.1); Protein, Total 5.4 g/dL (5.8-8.1); Sodium 134 mmol/L (136-145)
[2021-10-20] MEDS: Tamsulosin HCl 0.4 MG CAP PO SCH (08:53)
[2021-10-20] MEDS: Finasteride 5 MG TAB PO SCH (08:53)
[2021-10-20] MEDS: Megestrol Acetate 40 MG TAB PO SCH (08:53)
[2021-10-20] MEDS: Amiodarone 200 MG TAB PO SCH (08:53)
[2021-10-20] MEDS: Clopidogrel Bisulfate 75 MG TAB PO SCH (08:54)
[2021-10-20] MEDS: Sodium Chloride 0.9% 1,000 ML IV SCH (08:55)
[2021-10-20] MEDS: Carvedilol 3.125 MG TAB PO SCH (08:55)
[2021-10-20] MEDS: Spironolactone 25 MG TAB PO SCH (08:55)
[2021-10-20] MEDS: Aspirin 81 mg Enteric Coated Tablet PO SCH (08:55)
[2021-10-20] MEDS: Nystatin 500,000 UNITS/5 ML UDCUP SSW SCH ×2 (08:59→11:39)
== END 2021-10-20 12:57 | DRG 558 ==
LOC: BURMED 13:42
PROVIDERS: ADMIT Family Medicine; ATTEND Family Medicine
DX: M62.82 Rhabdomyolysis (principal); I50.22 Chronic systolic (congestive) heart failure; I69.354 Hemiplegia and hemiparesis following cerebral infarction affecting left non-dominant side; E86.0 Dehydration; R53.1 Weakness; I11.0 Hypertensive heart disease with heart failure; E78.5 Hyperlipidemia, unspecified; N40.0 Benign prostatic hyperplasia without lower urinary tract symptoms; Z95.810 Presence of automatic (implantable) cardiac defibrillator
CPT/HCPCS: 36415; 71046; 80053; 81001; 85025; 87040; 87086; J1956; J3480; J7050; S0179